=== PATIENT | male | born 1995 | race Caucasian/White ===

== ENCOUNTER → 2023-11-01 09:02 | Outpatient (CLI) | payer OTHER, SELFPAY ==
--- NOTE | 2023-11-01 | DI.MRI.S_ITS ---
PROCEDURE: MR LUMBAR SPINE WO CON INDICATIONS: Low back pain TECHNIQUE: Noncontrast sagittal T1 spin echo and T2 fast echo, sagittal STIR, and T2 fast spin echo through the lumbar spine. Coronal T2 fast spin echo was also acquired. COMPARISON: None. FINDINGS: Image quality: Excellent. Alignment and Curvature: There is normal bony alignment. Bone Marrow: Marrow is of normal overall signal. No acute vertebral body compression fractures. Spinal Cord: Conus medullaris terminates at the L1 level. Visualized cord demonstrates normal signal and size. Paraspinous Soft Tissues: No paravertebral masses. Paraspinous musculature is normal in bulk. T12-L1: No significant spinal canal stenosis or neural foraminal narrowing. L1-L2: No significant spinal canal stenosis or neural foraminal narrowing. L2-L3: No significant spinal canal stenosis or neural foraminal narrowing. L3-L4: No significant spinal canal stenosis or neural foraminal narrowing. L4-L5: Disc desiccation and loss of disc space height with mild circumferential disc bulging that is eccentric towards the left as well as focal central disc extrusion measuring 10 x 3 mm in axial dimensions by 9 mm craniocaudal, extending along the posterior aspect of the L5 vertebral body. Mild bilateral facet hypertrophy. Findings result in mild narrowing of the spinal canal with crowding of the left lateral recess. Disc material is seen abutting the left L5 nerve root in the left lateral recess. There is also mild bilateral neural foraminal narrowing. L5-S1: Disc desiccation and mild loss of disc space height. There is a left paracentral disc extrusion measuring up to 15 x 12 mm in axial dimensions by 11 mm craniocaudal. There is also mild bilateral facet hypertrophy. Findings result in effacement of the left lateral recess and possible impingement of the traversing left S1 nerve roots without significant narrowing of the central spinal canal. There is moderate left and mild right neural foraminal narrowing. IMPRESSION: 1. At L5-S1, large left paracentral disc extrusion effaces the left lateral recess and may impinge upon the traversing left S1 nerve root. There is also moderate left and mild right neural foraminal narrowing at this level. 2. At L4-5, degenerative changes and a small central disc extrusion result in crowding of the left lateral recess with disc material abutting the traversing left L5 nerve root, as well as mild spinal canal narrowing and mild narrowing of the bilateral neural foramina. Approved by: Len Gómez M.D. on 11/01/2023 at 14:02
== END ==
LOC: MRI 09:05
PROVIDERS: PCP Nurse Practitioner Family; Referring Provider Nurse Practitioner Family; Visit Provider Nurse Practitioner Family
DX: M51.27 Other intervertebral disc displacement, lumbosacral region (principal); M51.26 Other intervertebral disc displacement, lumbar region; M47.817 Spondylosis without myelopathy or radiculopathy, lumbosacral region; M47.816 Spondylosis without myelopathy or radiculopathy, lumbar region; M48.07 Spinal stenosis, lumbosacral region; M48.061 Spinal stenosis, lumbar region without neurogenic claudication
CPT/HCPCS: 72148

== ENCOUNTER → 2024-02-17 07:34 | Outpatient (CLI) | payer OTHER, SELFPAY ==
--- NOTE | 2024-02-17 | DI.MRI.S_ITS ---
PROCEDURE: MR LUMBAR SPINE WO CON INDICATIONS: Radiculopathy, lumbar region TECHNIQUE: Noncontrast sagittal T1 spin echo and T2 fast echo, sagittal STIR, and T2 fast spin echo through the lumbar spine. In cases with scoliosis, additional coronal T2 fast spin echo may be performed. COMPARISON: [facility], , MR LUMBAR SPINE WO CON, 11/01/2023, 9:42. FINDINGS: Image quality: Excellent. Alignment and Curvature: There is minimal retrolisthesis at L4-L5. Bone Marrow: Marrow is of normal overall signal. No acute vertebral body compression fractures. Spinal Cord: Conus medullaris terminates at the L1 level. Visualized cord demonstrates normal signal and size. Paraspinous Soft Tissues: No paravertebral masses. T12-L1: Normal appearance. L1-L2: Normal appearance. L2-L3: Normal appearance. L3-L4: Normal appearance. L4-L5: Mild loss of disc height is seen. Loss of disc signal is seen. Mild generalized disc bulge is seen. There is a superimposed mild central disc extrusion, with mild inferior migration of the disc material. There is a focal annular fissure seen posteriorly. Mild facet joint hypertrophy is seen. Moderate bilateral neural foraminal narrowing is seen. Mild central canal narrowing is seen. When comparison is made with the prior images, these findings are similar. L5-S1: Moderate loss of disc height is seen. Loss of disc signal is seen. Moderate generalized disc bulge is seen. There is a central/left disc protrusion. Mild facet joint hypertrophy is seen. There is [id number] right-sided and at least moderate left-sided neural foraminal narrowing. There is a degree of compression seen upon the exiting left L5 nerve root. Mild central canal narrowing is seen. Interval left hemilaminectomy change can be seen. The previously seen left-sided disc extrusion has resolved. IMPRESSION: Interval postoperative change at L5-S1, with resolution of the central/left disc extrusion. Dictated by: Nash Tabares M.D. on 02/19/2024 at 10:37 Approved by: Nash Tabares M.D. on 02/19/2024 at 10:41
== END ==
PROVIDERS: Referring Provider Neurological Surgery; Visit Provider Neurological Surgery
DX: M51.16 Intervertebral disc disorders with radiculopathy, lumbar region (principal); M47.26 Other spondylosis with radiculopathy, lumbar region; M48.061 Spinal stenosis, lumbar region without neurogenic claudication; M51.17 Intervertebral disc disorders with radiculopathy, lumbosacral region; M47.27 Other spondylosis with radiculopathy, lumbosacral region; M48.07 Spinal stenosis, lumbosacral region; Z98.890 Other specified postprocedural states
CPT/HCPCS: 72148

== ENCOUNTER → 2024-06-15 14:22 | Outpatient (CLI) | payer OTHER, SELFPAY ==
--- NOTE | 2024-06-15 14:25 | DI.MRI.S_ITS ---
PROCEDURE: MR LUMBAR SPINE WO CON INDICATIONS: L5-S1 DISC ISSUES / SP LAMINECTOMY TECHNIQUE: Noncontrast sagittal T1 spin echo and T2 fast echo, sagittal STIR, and T2 fast spin echo through the lumbar spine. In cases with scoliosis, additional coronal T2 fast spin echo may be performed. COMPARISON: [facility], MR, MR LUMBAR SPINE WO CON, 02/17/2024, 8:07. FINDINGS: Image quality: Excellent. Alignment and Curvature: There is normal bony alignment. Bone Marrow: Evidence of prior L4-5 and L5-S1 left laminotomy Spinal Cord: Conus medullaris terminates at the L1 level. Visualized cord demonstrates normal signal and size. Paraspinous Soft Tissues: No paravertebral masses. T12-L1: Normal appearance. L1-L2: Normal appearance. L2-L3: Normal appearance. L3-L4: Normal appearance. L4-L5: Disc space narrowing and asymmetric left disc bulge with high-intensity zone in the posterior annulus reflecting annular fissure or tear. There is effacement of the left lateral recess with displacement of the descending nerve root, slightly increased from the prior exam. Moderate bilateral foraminal stenosis. Mild central stenosis. L5-S1: Disc bulge and arthropathy. Left subarticular disc protrusion present, increased in size from the prior exam. Effacement of the left lateral recess and displacement of the descending nerve root noted as well. Moderate left foraminal stenosis is stable from the prior. No right foraminal stenosis. Mild central stenosis. IMPRESSION: Degenerative disc disease and arthropathy results in the increasing effacement of the left lateral recess at L4-5 and L5-S1 with displacement of the descending nerve roots, as above. Approved by: Abhi Richards M.D. on 06/17/2024 at 13:12
== END ==
PROVIDERS: Referring Provider Nurse Practitioner Family; Visit Provider Nurse Practitioner Family
DX: M51.369 Other intervertebral disc degeneration, lumbar region without mention of lumbar back pain or lower extremity pain (principal); M51.379 Other intervertebral disc degeneration, lumbosacral region without mention of lumbar back pain or lower extremity pain; M48.061 Spinal stenosis, lumbar region without neurogenic claudication; M48.07 Spinal stenosis, lumbosacral region; M47.817 Spondylosis without myelopathy or radiculopathy, lumbosacral region; Z98.890 Other specified postprocedural states
CPT/HCPCS: 72148

== ENCOUNTER → 2024-12-24 08:54 | Outpatient (CLI) | payer OTHER, SELFPAY ==
--- NOTE | 2024-12-24 08:55 | DI.MRI.S_ITS ---
PROCEDURE: MR LUMBAR SPINE WO CON INDICATIONS: Hyperesthesia TECHNIQUE: Noncontrast sagittal T1 spin echo and T2 fast echo, sagittal STIR, and T2 fast spin echo through the lumbar spine. In cases with scoliosis, additional coronal T2 fast spin echo may be performed. COMPARISON: [facility], MR, MR LUMBAR SPINE WO CON, 06/15/2024, 14:39. FINDINGS: Image quality: Excellent. Alignment and Curvature: There is normal bony alignment. Bone Marrow: Marrow is of normal overall signal. No acute vertebral body compression fractures. Spinal Cord: Conus medullaris terminates at the L1 level. Visualized cord demonstrates normal signal and size. Paraspinous Soft Tissues: No paravertebral masses. T12-L1: No disc bulge, spinal stenosis or foraminal narrowing. L1-L2: No disc bulge, spinal stenosis or foraminal narrowing. L2-L3: No disc bulge, spinal stenosis or foraminal narrowing. L3-L4: No disc bulge, spinal stenosis or foraminal narrowing. L4-L5: Mild disc bulge with superimposed appearance of left posterior protrusion at the lateral recess. It is causing compromise of the proximal foramina. There appears to been interval left hemilaminectomy changes. L5-S1: Mild disc bulge with increased T2 signal posteriorly. There is effacement of the left lateral recess and displacement descending nerve root. Overall moderate left foraminal narrowing. Appearance is relatively stable. IMPRESSION: Presumed postsurgical change at L4-5 with what now appears to be recurrent protrusion or perhaps scar formation at the lateral recess with foraminal narrowing. Contrast study is recommended for further evaluation. Unchanged appearance of disc bulge with effacement of the left lateral recess and displacement of descending nerve root at L5-S1. Dictated by: Aundrea Jewell M.D. on 12/24/2024 at 12:22 Approved by: Aundrea Jewell M.D. on 12/24/2024 at 12:29
== END ==
PROVIDERS: Referring Provider Physician Assistant Medical; Visit Provider Physician Assistant Medical
DX: R20.3 Hyperesthesia (principal); M51.369 Other intervertebral disc degeneration, lumbar region without mention of lumbar back pain or lower extremity pain; M48.061 Spinal stenosis, lumbar region without neurogenic claudication; M51.379 Other intervertebral disc degeneration, lumbosacral region without mention of lumbar back pain or lower extremity pain; M48.07 Spinal stenosis, lumbosacral region; Z98.890 Other specified postprocedural states
CPT/HCPCS: 72148

== ENCOUNTER → 2025-01-09 08:56 | Outpatient (CLI) | payer OTHER, SELFPAY ==
--- NOTE | 2025-01-09 08:59 | DI.MRI.S_ITS ---
PROCEDURE: MR LUMBAR SPINE W CON INDICATIONS: status post lumbar laminectomy TECHNIQUE: Noncontrast sagittal T1 spin echo and T2 fast echo, sagittal STIR, and T2 fast spin echo through the lumbar spine. In cases with scoliosis, additional coronal T2 fast spin echo may be performed. COMPARISON: None. FINDINGS: Image quality: Excellent. Alignment and Curvature: There is normal bony alignment. Bone Marrow: Marrow is of normal overall signal. No acute vertebral body compression fractures. Spinal Cord: Conus medullaris terminates at the L1 level. Visualized cord demonstrates normal signal and size. Paraspinous Soft Tissues: No paravertebral masses. T12-L1: Normal appearance. L1-L2: Normal appearance. L2-L3: Normal appearance. L3-L4: Normal appearance. L4-L5: Status post left hemilaminectomy changes with enhancing granulation tissue which extends to the posterior paraspinal soft tissues as expected. Mild disc bulge with left subarticular posterior protrusion with moderate left foraminal stenosis. No central canal or right foraminal stenosis. L5-S1: Status post left hemilaminotomy changes with enhancing granulation tissue which extends to the posterior paraspinal soft tissues as expected. Mild left foraminal narrowing without central canal stenosis. IMPRESSION: 1. Postsurgical changes at L4-L5 and L5-S1 with left hemilaminectomy with associated enhancing granulation tissue. 2. Mild degenerative disc disease of the lower lumbar spine which results in varying degrees of left foraminal stenosis some of which is associated with postoperative granulation tissue accounting for prior findings. REFERENCE DELETE FROM FINAL REPORT Less common manifestations of disc degeneration: * dorsal epidural disc herniation. * intradural disc herniation (may have beaklike morphology). * symptomatic thoracic herniation: often, calcified, intradural. * far lateral disc herniation. * discal cyst: may have blood-fluid level. * fibrocartilaginous embolism of disc material to spinal cord. * calcified disc or bony spicule causing spinal CSF leak. Lumbar disc nomenclature v2.0: Recommendations of the combined task forces of the [place] [employer], [place] [employer], and [place] [employer] Annular fissures: seen as high intensity zones on MRI. Concentric, radial, transverse. Degeneration encompasses: desiccation, fibrosis, disc narrowing, diffuse bulge, fissuring, mucinous degeneration of annulus, intradiscal gas, vertebral apophyseal osteophytes, end plate defects, inflammatory changes and sclerosis (Modic types I-III). Disc herniation: localized or focal displacement of disc material less than 25% (90 degrees) of disc periphery on axial images. Diffuse bulging and asymmetric bulging (>25%) are not considered herniation. * Protrusion, extrusion, sequestration. * Disc fragment can migrate (refers only to position, not contiguity). * Intravertebral herniations (aka Schmorl nodes). * Herniations may be contained (if covered by intact outer annulus and/or PLL) vs uncontained. Subligamentous is considered synonymous with contained. A sequestered and/or migrated disc fragment can still be contained. Canal and foraminal stenosis: use 2-D measurements at site of most marked compromise. * Mild: canal compromise of less than 1/3. * Moderate: canal compromise of 1/3 to 2/3. * Severe: canal compromise of greater than 2/3. Location descriptors: * Central, right/left central, right/left subarticular, right/left foraminal, right/left extraforaminal or far lateral. Right/left central should supersede paracentral (a more general term). * In sagittal plane: discal, infrapedicular, suprapedicular, or pedicular. Dictated by: Penelope Mejía M.D. on 01/09/2025 at 12:12 Approved by: Penelope Mejía M.D. on 01/09/2025 at 12:20
== END ==
PROVIDERS: Referring Provider Neurological Surgery; Visit Provider Neurological Surgery
DX: M51.369 Other intervertebral disc degeneration, lumbar region without mention of lumbar back pain or lower extremity pain (principal); M48.061 Spinal stenosis, lumbar region without neurogenic claudication; Z98.890 Other specified postprocedural states
CPT/HCPCS: 72149; A9579